=== PATIENT | female | born 2005 | race Caucasian/White ===

== ENCOUNTER 2023-05-30 11:27 | Emergency (ER) | payer OTHER, SELFPAY | END 2023-05-30 13:00 | disposition home or self-care (01) | LOC: CSHERS 11:27 | DX: S62.616A Displaced fracture of proximal phalanx of right little finger, initial encounter for closed fracture (principal); W23.1XXA Caught, crushed, jammed, or pinched between stationary objects, initial encounter; Y99.0 Civilian activity done for income or pay ==